=== PATIENT | male | born 1965 | race Caucasian/White ===

== ENCOUNTER 2020-10-26 06:20 | Observation (INO) | payer BC ==
--- OUTSIDE RECORDS SUMMARY | 2020-10-26 06:22 | XMS REPORT | Continuity of Care Document ---
:1965 Author Organization [facility] t Address [address] [place] [address] [address] Care Team Providers Name Role Phone BUTTERFIELD Attending Clinician Unavailable Problems This patient has no known problems. Allergies, Adverse Reactions, Alerts This patient has no known allergies or adverse reactions. Medications This patient has no known medications. Procedures This patient has no known procedures. Encounters Start End Encounter Admission Attending Care Care Encounter Source Date/Time Date/Time Type Type Clinicians Facility Department ID 2020-09-13 2020-09-13 Outpatient [facility]QUEL [facility] [id number] [place] 00:00:00 00:00:[address] 2020-09-13 2020-09-13 Outpatient [facility]ER MIQUEL [facility] [id number] [place] 00:00:00 00:00:[address] 2020-09-13 2020-09-13 Outpatient [facility]QUEL [facility] [id number] [place] 00:00:00 00:00:[address] Results This patient has no known results.
[2020-10-26 07:19] LABS: Absolute Lymphocytes (CBC) 0.9 K/uL (0.7-4.9); Basophils % 0.6 % (0-1.3); Hematocrit 39.9 % (39.6-49.0); Lymphocytes % 7.6 % (15.3-44.8); MPV 8.1 fL (7.6-11.3); RBC Red Blood Cell Count 4.49 M/uL (4.33-5.43)
[2020-10-26 07:31] LABS: Protime INR 1.03
[2020-10-26] MEDS ORDERED: METHYLPREDNISOLONE 125 MG INJ ONE (07:38)
[2020-10-26] MEDS ORDERED: NA CHLORIDE 0.9% 1,000 ML ONE (07:39)
[2020-10-26] MEDS ORDERED: AZITHROMYCIN 500 MG INJ IVPB ONE (07:39)
[2020-10-26] MEDS ORDERED: NA CHLORIDE 0.9% 250 ML ONE (07:39)
[2020-10-26 07:41] LABS: ALT/SGPT 92 U/L (12-78); AST/SGOT 47 U/L (15-37); Albumin 2.7 g/dL (3.4-5.0); Alkaline Phosphatase 53 U/L (45-117); BUN Blood Urea Nitrogen 11 mg/dL (7-18); Bicarbonate 24 mmol/L (21-32); Bilirubin Direct 0.1 mg/dL (0-0.2); Bilirubin Total 0.5 mg/dL (0.2-1.0); CKMB Creatine Kinase MB 3.8 ng/mL (0.3-3.6); Creatine Phosphokinase 129 U/L (39-308); Glucose Level 104 mg/dL (74-106); Lipase 120 U/L (73-393); NT PRO-BNP 350 pg/mL (<125); Protein, Total 6.9 g/dL (6.4-8.2); Sodium Level 134 mmol/L (136-145); Troponin (Emerg Dept Use Only) < 0.02 ng/mL (0.0-0.045)
--- NOTE | 2020-10-26 08:10 | RAD REPORT ---
EXAM DESCRIPTION: RAD - Chest Single View - 10/26/2020 7:51 am CLINICAL HISTORY: CONGESTION, positive COVID test October 14 COMPARISON: None TECHNIQUE: AP portable chest image was obtained 10/26/2020 7:51 am . FINDINGS: Hazy increased opacification is present in the lateral mid right lung field. Minimal left lower lung field alveolar opacities are present. No failure or volume overload. Heart and vasculature are normal. No measurable pleural effusion and no pneumothorax. No acute bony abnormality seen. No a cute aortic findings suspected. IMPRESSION: Mild bilateral pneumonia pattern. Pattern is nonspecific but can certainly fit with COVID pneumonia given the provided history.
[2020-10-26 08:17] LABS: Blood Morphology Comment NOT SEEN (NOT SEEN); Platelet Estimate ADEQ; Toxic Granulation 1+; White Blood Cell Scan OK (OK)
--- NOTE | 2020-10-26 08:39 | RAD REPORT ---
EXAM DESCRIPTION: CT - Chest For Pe Angio - 10/26/2020 8:18 am CLINICAL HISTORY: DYSPNEA COMPARISON: Chest Single View dated 10/26/2020 TECHNIQUE: Dynamically enhanced 3 mm thick images of the chest were obtained during administration o f approximately 150mL Isovue 370 IV contrast. Coronal and oblique MIP reconstruction images were gene rated and reviewed. Exam utilizes a protocol to evaluate the pulmonary arterial tree. All CT scans are performed using dose optimization technique as appropriate and may include automated exposure control or mA/KV adjustment according to patient size. FINDINGS: No pulmonary emboli are identified. Far peripheral branch assessment is limited due to res piratory motion. Embolic disease is not suspected. The aorta as imaged shows no acute or suspicious finding. No pericardial thickening or effusion. Patient has bilateral peripheral airspace and ground-glass opacities. Findings are more pronounced in each posterior lung base. This is a well described pattern with COVID-19 pneumonia. Influenza pneumo cayden, organizing pneumonia, connective tissue disease and drug toxicity etiologies are possible but un likely given the history. No pleural effusion or pleural thickening. No underlying malignancy identif ied. No mediastinal or hilar suspicious masses. No chest wall masses or abnormal axillary lymphadenopathy. IMPRESSION: Moderate severity COVID-19 pneumonia. No pulmonary emboli. No other significant or suspicious findings.
--- NOTE | 2020-10-26 08:43 | ER ---
Nurse's Notes [facility] Name: Temo Orellana Age: 55 yrs Sex: Male : 1965 Arrival Date: 10/26/2020 Time: 06:22 Bed 17 Private MD: Diagnosis: Pneumonia, unspecified organism-Bilateral;Coronavirus infection, unspecified;Hypoxemia Presentation: 10/26 06:35 Chief complaint: Patient states: diagnosed with covid pneumonia October 14, had SPO2 sat em 80-85% at home, was given dexamethasone and doxycycline by his PA, has had more fatigue, SOB on exertion and dry cough. Coronavirus screen: Client denies travel out of the [place] in the last 14 days. Client presents with at least one sign or symptom that may indicate coronavirus-19. Standard/surgical mask placed on the client. Provider contacted for isolation considerations. Client reports previous positive COVID test result. Date of collection: October 14, 2020. Ebola Screen: Patient negative for fever greater than or equal to 101.5 degrees Fahrenheit, and additional compatible Ebola Virus Disease symptoms Patient denies exposure to infectious person. Patient denies travel to an Ebola-affected area in the 21 days before illness onset. No symptoms or risks identified at this time. Initial Sepsis Screen: Does the patient meet any 2 criteria? RR > 20 per min. No. Patient's initial sepsis screen is negative. Does the patient have a suspected source of infection? Yes: Productive cough/pneumonia. Risk Assessment: Do you want to hurt yourself or someone else? Patient reports no desire to harm self or others. Onset of symptoms was October 26, 2020. 06:35 Method Of Arrival: Ambulatory em 06:35 Acuity: AIDA 3 em Historical: - Allergies: 06:41 No Known Allergies; em - Home Meds: 06:41 levothyroxine 25 mcg tab [Active]; lisinopril 5 mg Oral tab [Active]; rosuvastatin 10 em mg oral tab [Active]; - PMHx: 06:41 Hypothyroidism; Hypertension; Hyperlipidemia; em - PSHx: 06:41 Hernia repair; left knee x 3; em - Immunization history:: Adult Immunizations up to date. - Social history:: Patient/guardian denies using alcohol, street drugs, The patient lives with family, Smoking status: Patient denies any tobacco usage or history of. - Family history:: not pertinent. Screenin:36 Abuse screen: Denies threats or abuse. Denies injuries from another. Nutritional sf screening: No deficits noted. Tuberculosis screening: No symptoms or risk factors identified. Never had TB. Possible symptoms: None Risk factors: None. Fall Risk None identified. No fall in past 12 months (0 pts). No secondary diagnosis (0 pts). No IV (0 pts). Ambulatory Aid- None/Bed Rest/Nurse Assist (0 pts). Gait- Normal/Bed Rest/Wheelchair (0 pts) Mental Status- Oriented to own ability (0 pts). Total Munoz Fall Scale indicates No Risk (0-24 pts). Assessment: 06:36 General: Appears in no apparent distress. comfortable, Behavior is calm, cooperative, sf appropriate for age. Pain: Complains of pain in chest Pain does not radiate. Pain at worst was 5 out of 10 on a pain scale. Pain began with deep breath and cough. Neuro: No deficits noted. Level of Consciousness is awake, alert, obeys commands, Oriented to person, place, time, situation. Cardiovascular: Reports chest pain, shortness of breath, Denies lightheadedness, palpitations, Capillary refill < 3 seconds Patient's skin is warm and dry. Respiratory: Reports shortness of breath on exertion cough that is non-productive, dry, pain with cough pain with respiration Airway is patent Respiratory effort is even, unlabored, Respiratory pattern is regular, symmetrical, Breath sounds are clear bilaterally. GI: No signs and/or symptoms were reported involving the gastrointestinal system. : No signs and/or symptoms were reported regarding the genitourinary system. Derm: Skin is pink, warm \T\ dry. 07:55 Reassessment: Patient appears in no apparent distress at this time. Patient and/or bw family updated on plan of care and expected duration. Pain level reassessed. Patient is alert, oriented x 3, equal unlabored respirations, skin warm/dry/pink. o2 placed on patient 2L nasal cannula. will continue to monitor. 08:55 Reassessment: No changes from previously documented assessment. Patient and/or family bw updated on plan of care and expected duration. Pain level reassessed. Patient is alert/active/playful, equal unlabored respirations, skin warm/dry/pink. 09:55 Reassessment: Patient appears in no apparent distress at this time. Patient and/or bw family updated on plan of care and expected duration. Pain level reassessed. Patient is alert, oriented x 3, equal unlabored respirations, skin warm/dry/pink. 10:55 Reassessment: Patient appears in no apparent distress at this time. Patient and/or bw family updated on plan of care and expected duration. Pain level reassessed. Patient is alert, oriented x 3, equal unlabored respirations, skin warm/dry/pink. 11:55 Reassessment: No changes from previously documented assessment. bw 12:55 Reassessment: No changes from previously documented assessment. bw 13:55 Reassessment: Patient appears in no apparent distress at this time. Patient and/or bw family updated on plan of care and expected duration. Pain level reassessed. Patient is alert, oriented x 3, equal unlabored respirations, skin warm/dry/pink. 14:55 Reassessment: Patient appears in no apparent distress at this time. No changes from bw previously documented assessment. 15:55 Reassessment: Patient appears in no apparent distress at this time. No changes from bw previously documented assessment. Patient and/or family updated on plan of care and expected duration. Pain level reassessed. Patient is alert, oriented x 3, equal unlabored respirations, skin warm/dry/pink. Vital Signs: 06:35 BP 139 / 96; Pulse 83; Resp 22; Temp 98.5(O); Pulse Ox 91% on R/A; Weight 98.88 kg; em Height 5 ft. 10 in. (177.80 cm); Pain 0/10; 07:55 BP 136 / 98; Pulse 88; Resp 22; Pulse Ox 97% on 2 lpm NC; Pain 5/10; bw 11:55 BP 132 / 91; Pulse 84; Resp 20; Pulse Ox 96% on 2 lpm NC; Pain 0/10; bw 15:55 BP 130 / 88; Pulse 89; Resp 20; Pulse Ox 97% on 2 lpm NC; bw 06:35 Body Mass Index 31.28 (98.88 kg, 177.80 cm) em ED Course: 06:22 Patient arrived in ED. cl3 06:32 Simba Juarez RN is Primary Nurse. sf 06:35 Peng Schultz MD is Attending Physician. ma2 06:36 Patient has correct armband on for positive identification. Bed in low position. Call sf light in reach. Side rails up X 1. Pulse ox on. NIBP on. Door closed. Noise minimized. Visitors limited. Lights dimmed. Verbal reassurance given. 06:39 Triage completed. em 06:41 Arm band placed on. em 06:45 Initial lab(s) drawn, by me, sent to lab. First set of blood cultures drawn by me. sf Inserted saline lock: 20 gauge in right forearm, using aseptic technique. Blood collected. 06:55 Second set of blood cultures drawn by me. Inserted saline lock: 20 gauge in left sf forearm, using aseptic technique. Blood collected. 07:10 Blood Culture Adult (2) Sent. sf 07:10 BMP Sent. sf 07:10 CBC with Diff Sent. sf 07:10 Ckmb Sent. sf 07:10 CPK Sent. sf 07:12 Report given to VICKIE Luther. sf 07:21 Attending Physician role handed off by Peng Schultz MD rn 07:21 Valentin Fajardo MD is Attending Physician. rn 07:34 Primary Nurse role handed off by Simba Juarez RN bd 07:49 XRAY CXR (1 view) In Process Unspecified. EDMS 08:18 CT Chest For PE Angio In Process Unspecified. EDMS 08:38 Homa Izaguirre, VICKIE is Primary Nurse. bw 08:41 Tod Ballesteros is Hospitalizing Provider. rn 15:55 Inserted. bw Administered Medications: 07:33 Dru mg of (AZITHromycin 500 mg, NS 0.9% 250 ml) Route: IVPB; Rate: 250 calculated bw rate; Infused Over: 1 hrs; Site: left forearm; Delivery: Dial-a-flow; 07:33 Drug: NS 0.9% 1000 ml Route: IV; Rate: 125 ml/hr; Site: right forearm; bw 07:34 Drug: SOLU-Medrol 125 mg Route: IVP; Site: right forearm; bw 08:45 Drug: Motrin 800 mg Route: PO; bw Outcome: 08:42 Decision to Hospitalize by Provider. rn 16:51 Patient left the ED. hb Signatures: Dispatcher [employer] EDMS Sharona Ramsay Edgar, RN RN Valentin Dow MD MD rn Vickie Leal RN RN Peng Schultz MD MD ma2 Lewis, [place] Simba Juarez RN RN Izaguirre, VICKIE Luther RN
--- NOTE | 2020-10-26 08:43 | EDPHYS ---
Physician Documentation [facility] Name: Temo Orellana Age: 55 yrs Sex: Male : 1965 Arrival Date: 10/26/2020 Time: 06:22 Bed 17 Private MD: ED Physician Valentin Fajardo HPI: 10/26 06:38 This 55 yrs old Male presents to ER via Unassigned with complaints of Low ma2 Oxygen Level, COVID+. 06:38 The patient or guardian reports cough. Onset: The symptoms/episode began/occurred ma2 gradually, 1 day(s) ago. Associated signs and symptoms: Pertinent negatives: ear ache, rhinorrhea, sore throat. Severity of symptoms: At their worst the symptoms were moderate in the emergency department the symptoms are unchanged. The patient has not experienced similar symptoms in the past. covid + here with cough and saturation at home 85% , his sats here is 91 on RA, . 06:38 patient takes dexamethasone and doxycycline . ma2 Historical: - Allergies: 06:41 No Known Allergies; em - Home Meds: 06:41 levothyroxine 25 mcg tab [Active]; lisinopril 5 mg Oral tab [Active]; rosuvastatin 10 em mg oral tab [Active]; - PMHx: 06:41 Hypothyroidism; Hypertension; Hyperlipidemia; em - PSHx: 06:41 Hernia repair; left knee x 3; em - Immunization history:: Adult Immunizations up to date. - Social history:: Patient/guardian denies using alcohol, street drugs, The patient lives with family, Smoking status: Patient denies any tobacco usage or history of. - Family history:: not pertinent. ROS: 06:38 Constitutional: Negative for fever, chills, and weight loss. ma2 06:38 All other systems are negative. Exam: 06:38 Constitutional: This is a well developed, well nourished patient who is awake, alert, ma2 and in no acute distress. Head/Face: Normocephalic, atraumatic. Eyes: Pupils equal round and reactive to light, extra-ocular motions intact. Lids and lashes normal. Conjunctiva and sclera are non-icteric and not injected. Cornea within normal limits. Periorbital areas with no swelling, redness, or edema. ENT: Nares patent. No nasal discharge, no septal abnormalities noted. Tympanic membranes are normal and external auditory canals are clear. Oropharynx with no redness, swelling, or masses, exudates, or evidence of obstruction, uvula midline. Mucous membranes moist. Neck: Trachea midline, no thyromegaly or masses palpated, and no cervical lymphadenopathy. Supple, full range of motion without nuchal rigidity, or vertebral point tenderness. No Meningismus. Chest/axilla: Normal chest wall appearance and motion. Nontender with no deformity. No lesions are appreciated. Cardiovascular: Regular rate and rhythm with a normal S1 and S2. No gallops, murmurs, or rubs. Normal PMI, no JVD. No pulse deficits. Respiratory: sats 91 on RA.. Lungs have equal breath sounds bilaterally, clear to auscultation and percussion. No rales, rhonchi or wheezes noted. No increased work of breathing, no retractions or nasal flaring. Abdomen/GI: Soft, non-tender, with normal bowel sounds. No distension or tympany. No guarding or rebound. No evidence of tenderness throughout. Skin: Warm, dry with normal turgor. Normal color with no rashes, no lesions, and no evidence of cellulitis. MS/ Extremity: Pulses equal, no cyanosis. Neurovascular intact. Full, normal range of motion. Neuro: Awake and alert, GCS 15, oriented to person, place, time, and situation. Cranial nerves II-XII grossly intact. Motor strength 5/5 in all extremities. Sensory grossly intact. Cerebellar exam normal. Normal gait. 08:55 ECG was reviewed by the Attending Physician. rn Vital Signs: 06:35 BP 139 / 96; Pulse 83; Resp 22; Temp 98.5(O); Pulse Ox 91% on R/A; Weight 98.88 kg; em Height 5 ft. 10 in. (177.80 cm); Pain 0/10; 07:55 BP 136 / 98; Pulse 88; Resp 22; Pulse Ox 97% on 2 lpm NC; Pain 5/10; bw 11:55 BP 132 / 91; Pulse 84; Resp 20; Pulse Ox 96% on 2 lpm NC; Pain 0/10; bw 15:55 BP 130 / 88; Pulse 89; Resp 20; Pulse Ox 97% on 2 lpm NC; bw 06:35 Body Mass Index 31.28 (98.88 kg, 177.80 cm) em MDM: 06:35 Patient medically screened. ny2 07:24 ED course: Signed out to me by Dr. Schultz, pending likely admit for worsening COVID rn pneumonia. . 08:41 Differential diagnosis: bronchitis, pneumonia, PE. Data reviewed: vital signs, nurses rn notes, lab test result(s), radiologic studies, CT scan, plain films, and as a result, I will admit patient. Counseling: I had a detailed discussion with the patient and/or guardian regarding: the historical points, exam findings, and any diagnostic results supporting the discharge/admit diagnosis, lab results, radiology results, the need for further work-up and treatment in the hospital. Response to treatment: the patient's symptoms have mildly improved after treatment, and as a result, I will admit patient. Admission orders: after a detailed discussion of the patient's condition and case, the admit orders are written by me. 10/26 06:38 Order name: Blood Culture Adult (2) 10/26 06:38 Order name: BMP 10/26 06:38 Order name: CBC with Diff 10/26 06:38 Order name: Ckmb 10/26 06:38 Order name: CPK 10/26 06:38 Order name: D-Dimer; Complete Time: 07:43 10/26 06:38 Order name: Hepatic Function; Complete Time: 07:43 10/26 06:38 Order name: Lipase; Complete Time: 07:43 10/26 06:38 Order name: Magnesium; Complete Time: 07:43 10/26 06:38 Order name: NT PRO-BNP; Complete Time: 07:43 10/26 06:38 Order name: PT-INR; Complete Time: 07:43 10/26 06:38 Order name: Ptt, Activated; Complete Time: 07:43 10/26 06:38 Order name: Troponin (emerg Dept Use Only); Complete Time: 07:43 10/26 06:38 Order name: Blood Culture [facility] 10/26 06:38 Order name: XRAY CXR (1 view); Complete Time: 08:41 10/26 06:38 Order name: EKG; Complete Time: 06:38 ma2 10/26 06:38 Order name: Cardiac monitoring; Complete Time: 08:58 ma2 10/26 06:38 Order name: EKG - Nurse/Tech; Complete Time: 08:58 ma2 10/26 06:38 Order name: IV Saline Lock; Complete Time: 07:10 ma2 10/26 06:38 Order name: Labs collected and sent; Complete Time: 07:10 ma2 10/26 06:38 Order name: Basic Metabolic Panel; Complete Time: 07:43 EDMS 10/26 06:38 Order name: CBC with Automated Diff; Complete Time: 08:41 EDMS 10/26 06:38 Order name: CKMB Creatine Kinase MB; Complete Time: 07:43 EDMS 10/26 06:38 Order name: Creatine Phosphokinase; Complete Time: 07:43 EDMS 10/26 07:59 Order name: CT Chest For PE Angio; Complete Time: 08:41 rn 10/26 08:17 Order name: CBC Smear Scan; Complete Time: 08:41 EDMS 10/26 06:38 Order name: O2 Per Protocol; Complete Time: 07:10 ma2 10/26 06:38 Order name: O2 Sat Monitoring; Complete Time: 07:10 ma2 EC:55 Rate is 79 beats/min. Rhythm is regular. QRS [place] is Normal. CA interval is normal. QRS rn interval is normal. QT interval is normal. No Q waves. T waves are Normal. No ST changes noted. Clinical impression: Normal ECG. Interpreted by me. Reviewed by me. Administered Medications: 07:33 Dru mg of (AZITHromycin 500 mg, NS 0.9% 250 ml) Route: IVPB; Rate: 250 calculated bw rate; Infused Over: 1 hrs; Site: left forearm; Delivery: Dial-a-flow; 07:33 Drug: NS 0.9% 1000 ml Route: IV; Rate: 125 ml/hr; Site: right forearm; bw 07:34 Drug: SOLU-Medrol 125 mg Route: IVP; Site: right forearm; bw 08:45 Drug: Motrin 800 mg Route: PO; bw Disposition: 10/26/20 08:42 Hospitalization ordered by Tod Ballesteros for Inpatient Admission. Preliminary diagnosis are Pneumonia, unspecified organism - Bilateral, Coronavirus infection, unspecified, Hypoxemia. - Bed requested for Telemetry/MedSurg (Inpatient). - Status is Inpatient Admission. hb - Condition is Stable. - Problem is new. - Symptoms have improved. Signatures: Dispatcher [employer] EDSharona Cain Edgar, RN VICKIE Valentin Fajardo MD MD rn Baxter, Heather, RN RN Peng Schultz MD MD [facility] Homa Izaguirre RN RN Corrections: (The following items were deleted from the chart) 15:36 08:42 Hospitalization Ordered by Tod Ballesteros for Inpatient Admission. Preliminary bd diagnosis is Pneumonia, unspecified organism - Bilateral; Coronavirus infection, unspecified; Hypoxemia. Bed requested for Telemetry/MedSurg (Inpatient). Status is Inpatient Admission. Condition is Stable. Problem is new. Symptoms have improved. rn 16:51 15:36 10/26/2020 08:42 Hospitalization Ordered by Tod Ballesteros for Inpatient hb Admission. Preliminary diagnosis is Pneumonia, unspecified organism - Bilateral; Coronavirus infection, unspecified; Hypoxemia. Bed requested for Telemetry/MedSurg (Inpatient). Status is Inpatient Admission. Condition is Stable. Problem is new. Symptoms have improved. bd
[2020-10-26] MEDS ORDERED: IBUPROFEN 400 MG TAB ONE (09:00)
[2020-10-26] MEDS ORDERED: ONDANSETRON 4 MG/2 ML VIAL IV PRN (14:15)
--- NOTE | 2020-10-26 15:23 | P.HP ---
Certification for Inpatient Patient admitted to: Observation With expected LOS: <2 Midnights Practitioner: I am a practitioner with admitting privileges, knowledge of patient current condition, hospital course, and medical plan of care. Services: Services provided to patient in accordance with Admission requirements found in Title 42 Section 412.3 of the Code of Federal Regulations Patient History Date of Service: 10/26/20 Reason for admission: Shortness of breath History of Present Illness: 55-year-old gentleman previously diagnosed with COVID 19 infection a week ago presented to the emergency department with a complaint of progressive shortness of breath. Patient stated his and some of his kids also tested positive for COVID 19. Patient found to be hypoxic on room air with oxygen saturation of 85%. Chest x-ray demonstrated bilateral infiltrate consistent with COVID pneumonia. Patient placed on oxygen by nasal canula, given antibiotics and IV steroid. He is hospitalized for further management. Allergies No Known Allergies Allergy (Verified 07/06/16 09:15) Home Medications: Sildenafil Citrate [Viagra] 50 mg PO PRN 07/06/16 - Past Medical/Surgical History -: Hypertension -: Hypothyroidism -: Hyperlipidemia - Family History Mother -: Diabetes - Social History Smoking Status: Never smoker Alcohol use: Yes CD- Drugs: No Place of Residence: Home Review of Systems Other: Patient reports generalized malaise, generalized body pains, nonproductive cough and shortness of breath. Except as documented, all other systems reviewed and negative. Physical Examination - Physical Exam General: Alert, In no apparent distress, Oriented x3 HEENT: Normocephalic, Mucous membr. moist/pink, Sclerae nonicteric Neck: Supple, JVD not distended Respiratory: Clear to auscultation bilaterally, Normal air movement Cardiovascular: No edema, Regular rate/rhythm, Normal S1 S2 Gastrointestinal: Normal bowel sounds, Soft and benign, Non-distended, No tenderness Musculoskeletal: No swelling, No tenderness Integumentary: No rashes, No erythema Neurological: Normal speech, Normal strength at 5/5 x4 extr, Cranial nerves 3-12 intact - Studies Laboratory Data (last 24 hrs) 10/26/20 06:45: PT 11.9, INR 1.03, APTT 21.9 L 10/26/20 06:45: WBC 12.30 H, Hgb 13.4 L, Hct 39.9, Plt Count 345 10/26/20 06:45: Sodium 134 L, Potassium 3.0 L, BUN 11, Creatinine 0.88, Glucose 104, Magnesium 2.0, Total Bilirubin 0.5, AST 47 H, ALT 92 H, Alkaline Phosphatase 53, Lipase 120 Assessment and Plan - Problems (Diagnosis) (1) Pneumonia due to COVID-19 virus Current Visit: Yes Status: Acute (2) Acute respiratory failure with hypoxia Current Visit: Yes Status: Acute (3) Hypertension Current Visit: Yes Status: Acute - Plan Admit to the medical floor. Start IV Solu-Medrol, vitamin-C, vitamin-D, zinc supplementation. Give a dose of Ivermectin. Monitor inflammatory markers. Titrate oxygen Insulin sliding scale for glucose management. Watch for steroid induced hyperglycemia. Continue home medications for hypertension and hyperlipidemia. Consult to pulmonary - Advance Directives Does patient have a Living Will: No Does patient have a Durable POA for Healthcare: No
[2020-10-26 16:17] VITALS: BMI 31.2
[2020-10-26] MEDS: ACETAMINOPHEN 500 MG TAB PO PRN ×2 (16:52→21:07)
[2020-10-26 18:37] LABS: Urine Appearance CLEAR; Urine Bilirubin NEGATIVE (NEG); Urine Blood NEGATIVE (NEG); Urine Color YELLOW; Urine Glucose NEGATIVE (NEG); Urine Protein NEGATIVE (NEG); Urine Specific Gravity >=1.030 (1.005-1.030); Urine Urobilinogen 0.2 mg/dL (0.2-1.0); Urine pH 6.5 (5.0-7.0)
[2020-10-26 18:41] LABS: Urine Microscopic Reflex NO UMIC
[2020-10-26] MEDS: FAMOTIDINE 20 MG/2 ML VIAL IV SCH (21:06)
[2020-10-26] MEDS: APIXABAN 2.5 MG TABLET PO SCH (21:06)
[2020-10-26] MEDS: METHYLPREDNISOLONE 40 MG INJ IV SCH (21:07)
[2020-10-26] MEDS ORDERED: POTASSIUM CL SA 10 MEQ TAB PO ONE (23:39)
[2020-10-27 04:15] VITALS: O2SAT 95
[2020-10-27 04:16] LABS: Absolute Lymphocytes (CBC) 0.8 K/uL (0.7-4.9); Basophils % 0.2 % (0-1.3); Hematocrit 39.1 % (39.6-49.0); Lymphocytes % 7.5 % (15.3-44.8); MPV 8.4 fL (7.6-11.3)
[2020-10-27 04:39] LABS: BUN Blood Urea Nitrogen 13 mg/dL (7-18); Bicarbonate 26 mmol/L (21-32); Ferritin 499.9 ng/mL (26-388); Glucose Level 125 mg/dL (74-106); HDL Cholesterol 49 mg/dL (40-60); LDL Cholesterol, Calculated 74 (<130); Magnesium 2.2 mg/dL (1.8-2.4); Phosphorus 3.8 mg/dL (2.5-4.9); Potassium 4.7 mmol/L (3.5-5.1); Sodium Level 134 mmol/L (136-145)
[2020-10-27] MEDS: ACETAMINOPHEN 500 MG TAB PO PRN (05:01)
--- NOTE | 2020-10-27 07:05 | EKG ---
Test Date: 2020-10-26 Test Time: 08:52:51 Waterproof Coating Machine Tender: LAUREL MEASUREMENT RESULTS: Intervals: Rate: 79 OK: 186 QRSD: 100 QT: 402 QTc: 460 [place]: P: 52 OK: 186 QRS: 10 T: 16 INTERPRETIVE STATEMENTS: Normal sinus rhythm Normal ECG No previous ECG available for comparison Electronically Signed On 10-27-20 07:02:32 CDT by Gene Sepulveda
[2020-10-27] MEDS: METHYLPREDNISOLONE 40 MG INJ IV SCH (08:21)
[2020-10-27] MEDS: FAMOTIDINE 20 MG/2 ML VIAL IV SCH (08:21)
[2020-10-27] MEDS: APIXABAN 2.5 MG TABLET PO SCH (08:21)
[2020-10-27 09:30] VITALS: BP 138/75; TEMP 98
--- NOTE | 2020-10-27 11:28 | P.DS ---
Admission Date: 10/26/20 Discharge Date: 10/27/20 Disposition: ROUTINE DISCHARGE Discharge Condition: FAIR Reason for Admission: Shortness of breath - Problems (1) Pneumonia due to COVID-19 virus Status: Acute (2) Acute respiratory failure with hypoxia Status: Acute (3) Hypertension Status: Acute Brief History of Present Illness: 55-year-old gentleman previously diagnosed with COVID 19 infection a week ago presented to the emergency department with a complaint of progressive shortness of breath. Patient stated his and some of his kids also tested positive for COVID 19. Patient found to be hypoxic on room air with oxygen saturation of 85%. Chest x-ray demonstrated bilateral infiltrate consistent with COVID pneumonia. Patient placed on oxygen by nasal canula, given antibiotics and IV steroid. He is hospitalized for further management. Hospital Course: Patient admitted to the medical floor and treated with IV steroid, vitamin-C, vitamin-D and zinc supplementation. He was initially requiring 2 L of oxygen but patient clinically improved and was weaned off oxygen. He is now tolerating room air with good oxygen saturation. Patient deemed clinically stable for discharge. He is discharged with oral dexamethasone and vitamin supplementation. He will need to follow with Dr. Jo within 1 week. . Vital Signs/Physical Exam: Temp Pulse Resp BP Pulse Ox 98 F 76 20 138/75 93 10/27/20 08:00 10/27/20 08:00 10/27/20 08:00 10/27/20 08:00 10/27/20 08:00 General: Alert, In no apparent distress, Oriented x3 Neck: JVD not distended Respiratory: Other (Nonlabored breathing) Cardiovascular: No edema, Regular rate/rhythm, Normal S1 S2 Gastrointestinal: Soft and benign, Non-distended Musculoskeletal: No swelling Integumentary: No rashes Neurological: Normal strength at 5/5 x4 extr Laboratory Data at Discharge: WBC 11.30 K/uL (4.3-10.9) H 10/27/20 03:24 Hgb 13.3 g/dL (13.6-17.9) L 10/27/20 03:24 Hct 39.1 % (39.6-49.0) L 10/27/20 03:24 Plt Count 326 K/uL (152-406) 10/27/20 03:24 PT 11.9 SECONDS (9.5-12.5) 10/26/20 06:45 INR 1.03 10/26/20 06:45 APTT 21.9 SECONDS (24.3-36.9) L 10/26/20 06:45 Sodium Cancelled 10/27/20 06:00 Potassium Cancelled 10/27/20 06:00 BUN Cancelled 10/27/20 06:00 Creatinine Cancelled 10/27/20 06:00 Glucose Cancelled 10/27/20 06:00 Phosphorus 3.8 mg/dL (2.5-4.9) 10/27/20 03:24 Magnesium 2.2 mg/dL (1.8-2.4) 10/27/20 03:24 Total Bilirubin 0.5 mg/dL (0.2-1.0) 10/26/20 06:45 AST 47 U/L (15-37) H 10/26/20 06:45 ALT 92 U/L (12-78) H 10/26/20 06:45 Alkaline Phosphatase 53 U/L (45-117) 10/26/20 06:45 Triglycerides 66 mg/dL (<150) 10/27/20 03:24 Cholesterol 136 mg/dL (<200) 10/27/20 03:24 HDL Cholesterol 49 mg/dL (40-60) 10/27/20 03:24 Cholesterol/HDL Ratio 2.78 10/27/20 03:24 Lipase 120 U/L (73-393) 10/26/20 06:45 Home Medications: Sildenafil Citrate [Viagra] 50 mg PO PRN 07/06/16 Apixaban [Eliquis *] 5 mg PO BID #60 tablet 10/27/20 Ascorbic Acid [Vitamin C] 2,000 mg PO BID #240 tab 10/27/20 Cholecalciferol (Vitamin D3) [Vitamin D 1000 Iu Tab] 4,000 unit PO DAILY #120 tab 10/27/20 Zinc Sulfate [Zinc Sulfate*] 220 mg PO DAILY #30 cap 10/27/20 dexAMETHasone [Dexamethasone] 6 mg PO DAILY #7 tablet 10/27/20 New Medications: dexAMETHasone [Dexamethasone] 6 mg PO DAILY #7 tablet Apixaban [Eliquis *] 5 mg PO BID #60 tablet Ascorbic Acid [Vitamin C] 2,000 mg PO BID #240 tab Cholecalciferol (Vitamin D3) [Vitamin D 1000 Iu Tab] 4,000 unit PO DAILY #120 tab Zinc Sulfate [Zinc Sulfate*] 220 mg PO DAILY #30 cap Diet: AHA Activity: Ad calixto Followup: Bob Jo MD [ACTIVE - CAN ADMIT] - 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
--- NOTE | 2020-10-27 12:31 | P.CNS ---
Date of Consult: 10/27/20 Reason for Consult: Pneumonia due to coronavirus Chief Complaint: Shortness of breath History of Present Illness: Patient is 55 years of age noticed with coronavirus infection about a week ago presented to the emergency room with worsening dyspnea all family tested positive he is currently doing well room air saturation is satisfactory he is feeling better his mild dyspnea on exertion Allergies No Known Allergies Allergy (Verified 07/06/16 09:15) Home Medications: Sildenafil Citrate [Viagra] 50 mg PO PRN 07/06/16 Apixaban [Eliquis *] 5 mg PO BID #60 tablet 10/27/20 Ascorbic Acid [Vitamin C] 2,000 mg PO BID #240 tab 10/27/20 Cholecalciferol (Vitamin D3) [Vitamin D 1000 Iu Tab] 4,000 unit PO DAILY #120 tab 10/27/20 Zinc Sulfate [Zinc Sulfate*] 220 mg PO DAILY #30 cap 10/27/20 dexAMETHasone [Dexamethasone] 6 mg PO DAILY #7 tablet 10/27/20 - Past Medical/Surgical History Diabetic: No -: Hypertension -: Hypothyroidism -: Hyperlipidemia -: L knee replacement -: hernia repair - Family History Mother Medical History: Diabetes - Social History Alcohol use: No CD- Drugs: No Place of Residence: Home Review of Systems General: Weakness Respiratory: Shortness of Breath Physical Examination Temp Pulse Resp BP Pulse Ox 98 F 76 20 138/75 93 10/27/20 08:00 10/27/20 08:00 10/27/20 08:00 10/27/20 08:00 10/27/20 08:00 General: Alert, Oriented x3 Respiratory: Clear to auscultation bilaterally - Problems (1) Pneumonia due to COVID-19 virus Current Visit: Yes Status: Acute Plan: Patient is 55 years of age admitted with pneumonia due to coronavirus labs reviewed CT scan reviewed she has mild bilateral patchy changes no pulmonary emboli doing well discharged home on prednisone to follow-up with me in 1 weeks continue with Decadron at home vital signs satisfactory
[2020-10-27] MEDS ORDERED: IVERMECTIN 3 MG TABLET PO ONE (12:33)
== END 2020-10-27 12:34 | disposition home or self-care (01) ==
LOC: ER 06:20 → ERHOLD 09:40 → INTOOBSV 09:40 → 4TH 16:08
PROVIDERS: ADMIT Internal Medicine; ATTEND Internal Medicine
DX: U07.1 COVID-19 (principal); J12.82 Pneumonia due to coronavirus disease 2019; J96.01 Acute respiratory failure with hypoxia; I10 Essential (primary) hypertension; E03.9 Hypothyroidism, unspecified; E78.5 Hyperlipidemia, unspecified; Z83.3 Family history of diabetes mellitus
CPT/HCPCS: 93005; 87040 ×2; 85025 ×2; 80048 ×2; 36415; 83735 ×2; 82550; 84100; 85610; 80061; 82947; 85379; 80076; 85730; 81003; 84484; 82553; 82728; 83690; 83880; 86140; 71275; 71045; 94760 ×6; Q9967; J0456; J7050; J7030; J2930; J2920 ×2; 99284; G0378